=== PATIENT | male | born 1965 | race Caucasian/White ===

== ENCOUNTER 2025-01-25 15:33 | Inpatient (IN) ==
[2025-01-25] MEDS ORDERED: AMBIEN PO PRN (15:45)
[2025-01-25] MEDS ORDERED: PERCOCET TAB 5/325 MG PO PRN (15:46)
[2025-01-25 17:29] LABS: MEAN PLATELET VOLUME 8.2 fL (7.4-11.0); RED CELL DISTRIBUTION WIDTH 16.4 % (11.6-16.5)
[2025-01-25 17:40] LABS: COR CA(FOR HYPOALB) 10.3 mg/dL (8.5-10.1); COR NA(FOR HYPERGLY) 140 mmol/L (136-145); CREATININE 1.05 mg/dL (0.70-1.30); eGFR NON BLACK RACES > 60 (>60)
[2025-01-25] MEDS: LR 1,000 ML IV 1,000 ML IV SCH (17:58)
[2025-01-25] MEDS: VANCOMYCIN IV *PREMIX 1 G/200 ML BAG 1 G/200 ML PIGGYBACK IV ONE ×2 (17:59→20:48)
[2025-01-25 18:21] VITALS: BMI 43.7
[2025-01-25 18:21] LABS: PLATELET MORPHOLOGY COMMENT NORMAL (NORMAL)
[2025-01-25] MEDS: PHARMACY CONSULT - VANCOMYCIN XX SCH (19:00)
[2025-01-26] MEDS ORDERED: CONSULT PHARMACY - POTASSIUM & MAGNESIUM XX SCH (01:00)
[2025-01-26] MEDS: MAG-OX TAB PO SCH (03:06)
[2025-01-26] MEDS: K-DUR TAB 20 MEQ PO SCH (03:06)
[2025-01-26] MEDS ORDERED: PHARMACY CONSULT XX SCH (09:00)
[2025-01-26] MEDS: VANCOMYCIN IV *PREMIX 1.5 G/300 ML BAG 1.5 G/300 ML PIGGYBACK IV SCH (09:35)
[2025-01-26] MEDS: LOVENOX INJ 40 MG SYR SC SCH (13:40)
[2025-01-26] MEDS: TYLENOL 500 MG TAB EXTRA STRENGTH PO PRN (13:59)
[2025-01-27] MEDS: ULTRAM PO PRN (02:02)
[2025-01-27 06:39] LABS: MEAN PLATELET VOLUME 8.3 fL (7.4-11.0); RED CELL DISTRIBUTION WIDTH 16.6 % (11.6-16.5)
[2025-01-27 06:56] LABS: COR CA(FOR HYPOALB) 9.9 mg/dL (8.5-10.1); COR NA(FOR HYPERGLY) 139 mmol/L (136-145); CREATININE 0.82 mg/dL (0.70-1.30); eGFR NON BLACK RACES > 60 (>60)
[2025-01-27 07:12] LABS: PLATELET MORPHOLOGY COMMENT NORMAL (NORMAL)
[2025-01-27] MEDS ORDERED: CONSULT PHARMACY - POTASSIUM & MAGNESIUM XX SCH (08:00)
[2025-01-27] MEDS ORDERED: PHARMACY COMMENT IV SCH (08:30)
[2025-01-27] MEDS: LR 1,000 ML IV 1,000 ML with MAGNESIUM SULFATE 50% INJ VIAL 2 G IV SCH (09:23)
[2025-01-27] MEDS: K-DUR TAB 20 MEQ PO SCH (09:24)
[2025-01-27] MEDS: MICARDIS PO SCH (11:12)
[2025-01-27] MEDS: ZOSYN VIAL 3.375 GRAMS 3.375 G in NS 100 ML IV 100 ML IV SCH (11:12)
[2025-01-27] MEDS: NS 250 ML IV 25 ML IV PRN (11:12)
[2025-01-27 12:41] LABS: CREATININE 0.79 mg/dL (0.70-1.30)
[2025-01-27] MEDS: VANCOMYCIN IV *PREMIX 1.25 G/250 ML BAG 1.25 G/250 ML PIGGYBACK IV SCH (13:34)
[2025-01-27] MEDS: PERCOCET TAB 5/325 MG PO PRN (20:23)
[2025-01-27] MEDS: CATAPRES TAB 0.1 MG PO ONE (21:50)
--- NOTE | 2025-01-27 22:17 | EKG ---
Test Reason : Hypertension Blood Pressure : */* mmHG Vent. Rate : 98 BPM Atrial Rate : 98 BPM P-R Int : 156 ms QRS Dur : 96 ms QT Int : 376 ms P-R-T Axes : 24 -12 16 degrees QTc Int : 480 ms Normal sinus rhythm Possible Left atrial enlargement Cannot rule out Anterior infarct , age undetermined Abnormal ECG No previous ECGs available Confirmed by Alfredo Marshall MD ([id number]) on 01/28/2025 5:53:39 AM Referred By: Confirmed By: Alfredo Marshall MD
[2025-01-28 05:40] LABS: MEAN PLATELET VOLUME 7.6 fL (7.4-11.0); RED CELL DISTRIBUTION WIDTH 16.4 % (11.6-16.5)
[2025-01-28 05:57] LABS: COR CA(FOR HYPOALB) 10.4 mg/dL (8.5-10.1); COR NA(FOR HYPERGLY) 136 mmol/L (136-145); CREATININE 1.00 mg/dL (0.70-1.30); eGFR NON BLACK RACES > 60 (>60)
[2025-01-28] MEDS: VIBRAMYCIN PO SCH (08:59)
[2025-01-28] MEDS: BACTROBAN TOPICAL OINT TOP ONE (11:00)
[2025-01-28] MEDS: CATAPRES TAB 0.1 MG PO ONE (11:35)
[2025-01-28] MEDS: PHARMACY COMMENT IV ONE (12:30)
[2025-01-28] MEDS: HYDROCHLOROTHIAZIDE 25 MG TAB PO SCH (12:44)
[2025-01-28 13:27] LABS: CREATININE 0.8 mg/dL (0.70-1.30)
--- NOTE | 2025-01-28 14:13 | NOTE.SOAP ---
Soap Note Note for Day of Date of Exam: 01/28/25 Subjective Data Subjective Data: Seen for daily rounds. Cultures growing out MSSA. Zosyn stopped yesterday. Still on IV vancomycin. Heart rate still in the 90s, hemoglobin in the tens, platelets normal, corrected sodium normal, WBCs slightly elevated. Objective Data Objective Data: Well-developed, well-nourished, morbidly obese male in no acute distress. Head NCAT, hearing grossly normal. Speech is unlabored and strong. Heart regular rate and rhythm with clear lungs. Right lower extremity with erythema, serous discharge, and bruising/necrosis subcutaneously in spots. Assessment Assessment: Sepsis (at admission; HR, WBCs, leg) RLL cellulitis (MSSA) Benign essential HTN Anemia of chronic disease Plan Plan: Stop bank tomorrow. Start doxycycline p.o. today. Tentatively plan on discharge tomorrow. Was on Bactrim before admission but failed. May consider double coverage with Doxy and clinda at discharge but concerned about using clinda with recent IV Vanco.
[2025-01-29 00:39] VITALS: O2SAT 95
[2025-01-29 06:01] LABS: MEAN PLATELET VOLUME 7.8 fL (7.4-11.0); RED CELL DISTRIBUTION WIDTH 16.1 % (11.6-16.5)
[2025-01-29 06:13] LABS: COR CA(FOR HYPOALB) 10.2 mg/dL (8.5-10.1); COR NA(FOR HYPERGLY) 137 mmol/L (136-145); CREATININE 0.85 mg/dL (0.70-1.30); eGFR NON BLACK RACES > 60 (>60)
[2025-01-29] MEDS ORDERED: K-DUR TAB 20 MEQ PO SCH (07:00)
[2025-01-29] MEDS ORDERED: CONSULT PHARMACY - POTASSIUM & MAGNESIUM XX SCH (07:00)
[2025-01-29] MEDS: K-DUR TAB 20 MEQ PO SCH (08:14)
[2025-01-29 08:16] VITALS: PULSE 92; TEMP 97.7
[2025-01-29] MEDS: BACTROBAN TOPICAL OINT TOP SCH (08:27)
[2025-01-29 08:40] VITALS: RESP 20
[2025-01-29 09:30] VITALS: BP 143/80
--- NOTE | 2025-01-29 16:58 | PCM.DCPLAN ---
DISCHARGE SUMMARY Admission Date Date of Admission: 01/25/25 Discharge Date Discharge Date: 01/29/25 Admission Diagnoses (1) Sepsis: Status: Acute (2) Cellulitis of right lower extremity: Status: Acute (3) Essential (primary) hypertension: Status: Acute (4) Morbid obesity due to excess calories: Status: Chronic (5) Acute anemia: Status: Acute Discharge Medications Discharge Medications: Home Medication List sulfamethoxazole 800 mg-trimethoprim 160 mg tablet 1 tab PO BID 01/25/25 [History] Prescriptions: Hospital Course Vital Signs: Vital Signs Temperature 97.9 F Temperature 97.8 F Pulse Rate [Right] 88 Pulse Rate [Right] 96 Respiratory Rate 20 Respiratory Rate 18 Respiratory Rate 20 Blood Pressure [Left Arm] 158/69 Blood Pressure [Left Arm] 157/60 O2 Sat by Pulse Oximetry 95 O2 Sat by Pulse Oximetry 95 Latest Lab Results: Laboratory Last Values WBC 12.9 X10^3/uL (3.6-10.0) H 01/29/25 05:36 RBC 3.80 X10^6/uL (4.7-6.0) L 01/29/25 05:36 Hgb 9.8 g/dL (13.5-18.0) L 01/29/25 05:36 Hct 28.8 % (42.0-54.0) L 01/29/25 05:36 MCV 75.8 fL (80.0-100.0) L 01/29/25 05:36 MCH 25.7 pg (27.0-34.0) L 01/29/25 05:36 MCHC 33.8 g/dL (33.0-35.0) 01/29/25 05:36 RDW 16.1 % (11.6-16.5) 01/29/25 05:36 Plt Count 391 X10^3/uL (150.0-450.0) 01/29/25 05:36 Plt Count Comment Adequate (ADEQUATE) 01/27/25 05:34 MPV 7.8 fL (7.4-11.0) 01/29/25 05:36 Neut % (Auto) 74.6 % (42.0-75.0) 01/29/25 05:36 Lymph % (Auto) 15.3 % (21.0-51.0) L 01/29/25 05:36 Kinney % (Auto) 7.4 % (0.0-13.0) 01/29/25 05:36 Eos % (Auto) 2.2 % (0.9-2.9) 01/29/25 05:36 Baso % (Auto) 0.5 % (0.2-1.0) 01/29/25 05:36 Neut # (Auto) 9.6 x10^3/uL (2.2-4.8) H 01/29/25 05:36 Lymph # (Auto) 2.0 X10^3/uL (1.3-2.9) 01/29/25 05:36 Kinney # (Auto) 1.0 x10^3/uL (0.3-0.8) H 01/29/25 05:36 Eos # (Auto) 0.3 x10^3/uL (0.0-0.2) H 01/29/25 05:36 Baso # (Auto) 0.1 X10^3/uL (0.0-0.1) 01/29/25 05:36 Absolute Nucleated RBC 0.0 /100WBC 01/29/25 05:36 Total Counted 100 01/27/25 05:34 Neutrophils % (Manual) 83 % (39-76) H 01/27/25 05:34 Lymphocytes % (Manual) 13 % (13-43) 01/27/25 05:34 Monocytes % (Manual) 3 % (4-9) L 01/27/25 05:34 Eosinophils % (Manual) 1 % (0-6) 01/27/25 05:34 Plt Morphology Comment Normal (NORMAL) 01/27/25 05:34 RBC Morphology Abnormal (NORMAL) 01/27/25 05:34 Hypochromasia Slight A 01/25/25 17:03 Anisocytosis Slight A 01/27/25 05:34 Microcytosis Slight A 01/25/25 17:03 Sodium 136 mmol/L (136-145) 01/29/25 05:36 Corrected Sodium 137 mmol/L (136-145) 01/29/25 05:36 Potassium 3.6 mmol/L (3.5-5.1) 01/29/25 05:36 Chloride 99 mmol/L (98-107) 01/29/25 05:36 Carbon Dioxide 29.2 mmol/L (21-32) 01/29/25 05:36 BUN 12 mg/dL (7-18) 01/29/25 05:36 Creatinine 0.85 mg/dL (0.70-1.30) 01/29/25 05:36 Est GFR (MDRD) Af Amer > 60 (>60) 01/29/25 05:36 Est GFR (MDRD) Non-Af > 60 (>60) 01/29/25 05:36 Glucose 152 mg/dL (65-99) H 01/29/25 05:36 Hemoglobin A1c < 3.8 % 01/27/25 05:34 Calcium 8.2 mg/dL (8.5-10.1) L 01/29/25 05:36 Corrected Calcium 10.2 mg/dL (8.5-10.1) H 01/29/25 05:36 Magnesium 2.3 mg/dL (2.0-2.9) 01/28/25 05:30 Total Bilirubin 0.50 mg/dL (0.2-1.0) 01/29/25 05:36 AST 31 Units/L (15-37) 01/29/25 05:36 ALT 33 Units/L (12-78) 01/29/25 05:36 Alkaline Phosphatase 159 Units/L (46-116) H 01/29/25 05:36 Total Protein 7.9 g/dL (6.4-8.2) 01/29/25 05:36 Albumin 1.5 g/dL (3.4-5.0) L 01/29/25 05:36 Globulin 6.4 g/dL (2.5-4.5) H 01/29/25 05:36 Albumin/Globulin Ratio 0.2 Ratio (1.1-2.1) L 01/29/25 05:36 Vancomycin Trough 13.5 ug/mL (15-20) L 01/28/25 12:55 Infect Dis PCR Plus See scanned report 01/25/25 17:25 Hospital Course: Patient mated by PCP due to worsening right lower extremity cellulitis that was not responding to p.o. Bactrim. Placed on IV vancomycin with cultures obtained. Zosyn was added due to continued leukocytosis. Culture did grow out MSSA sensitive to doxycycline and Augmentin. Vancomycin was continued and Doxy star babs orally. Being discharged on doxycycline twice daily x 10 days along with Augmentin twice daily x 10 days and wound care instructions per nurse with mupirocin Cleave to be added to his galls. Telmisartan was initially started due to hypertension with HCTZ added on to help with his bilateral lower extremity edema and BP. Numbers did slowly improve but were still not at goal at time of discharge. Right leg was greatly improved and he will have follow-up with his PCP next week. Should be able to return to work with a loose, cotton long pants and appropriate wound care. Patient been discharged home in improved, stable condition. PE: Morbidly obese male in no acute distress. Head NCAT with hearing grossly normal. Heart regular rate and rhythm. Lungs diminished but clear. Bowel cassidy nds present. Right leg with improving color and continued serosanguineous drainage at times. Some purulence from a large wound on the right superolateral aspect that is shrinking steadily. He is able to ambulate independently, but slightly
== END 2025-01-29 11:00 | disposition home or self-care (01) | DRG 603 ==
LOC: MED/SURG → OBSVTOIN 15:34
PROVIDERS: ADMIT Obstetrics & Gynecology Obstetrics; ATTEND Obstetrics & Gynecology Obstetrics
DX: D64.89 Other specified anemias; I83.218 Varicose veins of right lower extremity with both ulcer of other part of lower extremity and inflammation; R94.31 Abnormal electrocardiogram [ECG] [EKG]; Z29.89 Encounter for other specified prophylactic measures; Z68.41 Body mass index [BMI] 40.0-44.9, adult; I10 Essential (primary) hypertension; E66.01 Morbid (severe) obesity due to excess calories; B96.89 Other specified bacterial agents as the cause of diseases classified elsewhere; E83.42 Hypomagnesemia; E87.1 Hypo-osmolality and hyponatremia; E87.6 Hypokalemia; L03.115 Cellulitis of right lower limb; B95.61 Methicillin susceptible Staphylococcus aureus infection as the cause of diseases classified elsewhere; R73.09 Other abnormal glucose; L97.818 Non-pressure chronic ulcer of other part of right lower leg with other specified severity; R60.0 Localized edema